=== PATIENT | female | born 1980 | race Caucasian/White ===

== ENCOUNTER → 2017-03-03 | Outpatient (CLI) | payer OTHER | LOC: HPND 12:15 | PROVIDERS: ATTEND Obstetrics & Gynecology | DX: O09.513 Supervision of elderly primigravida, third trimester (principal); O28.0 Abnormal hematological finding on antenatal screening of mother | CPT/HCPCS: 76811 ==

== ENCOUNTER → 2017-03-31 | Outpatient (CLI) | payer OTHER | LOC: HPND 08:52 | PROVIDERS: ATTEND Obstetrics & Gynecology | DX: O09.512 Supervision of elderly primigravida, second trimester (principal); O28.0 Abnormal hematological finding on antenatal screening of mother | CPT/HCPCS: 76816; 76825; 76827; 93325 ==

== ENCOUNTER 2017-04-16 09:32 | Emergency (ER) | payer OTHER ==
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
[2017-04-16 11:13] LABS: HEMATOCRIT 32.2 % (35.0-46.0); HEMOGLOBIN 10.8 GM/DL (11.6-15.3); MEAN CELL VOLUME 86.9 FL (80.0-100.0); MEAN CORPUSCULAR HEMOGLOBIN 29.1 PG (27.0-34.0); MEAN CORPUSCULAR HGB CONC 33.5 % (32.0-36.0); MEAN PLATELET VOLUME 7.7 FL (7.0-11.0); PLATELET COUNT 275 TH/MM3 (150-450); RED BLOOD COUNT 3.71 MIL/MM3 (4.00-5.30); RED CELL DISTRIBUTION WIDTH 15.2 % (11.6-17.2); WHITE BLOOD COUNT 9.1 TH/MM3 (4.0-11.0)
== END 2017-04-16 12:28 | disposition home or self-care (01) ==
LOC: HOBED 09:32
DX: O09.512 Supervision of elderly primigravida, second trimester (principal); Z04.1 Encounter for examination and observation following transport accident; Z3A.23 23 weeks gestation of pregnancy
CPT/HCPCS: 36415; 76819; 85027; 85384; 86850; 86900; 86901; 99284

== ENCOUNTER → 2017-05-20 | Outpatient (CLI) | payer OTHER | LOC: HPND 08:44 | PROVIDERS: ATTEND Obstetrics & Gynecology | DX: O09.523 Supervision of elderly multigravida, third trimester (principal); O28.0 Abnormal hematological finding on antenatal screening of mother | CPT/HCPCS: 76816 ==